=== PATIENT | female | born 1935 | race Two or more races ===

== ENCOUNTER 2020-02-16 13:03 | Inpatient (IN) | payer MEDICAID, OTHER ==
[~2020-02-16] VITALS: Ht 160 cm; Wt 89.0 kg
[2020-02-16] MEDS: SODIUM CHLORIDE 0.9% 1,000 ML IV SCH
[2020-02-16 01:35] VITALS: BP 133/75
[2020-02-16] MEDS: BUDESONIDE (INHALATION) 180 MCG IH IN SCH (10:00)
[2020-02-16] MEDS ORDERED: cefTRIAXone 1GM/50ML D5W 50 ML IV ONE (13:30)
[2020-02-16 14:22] LABS: Basophils # (auto) 0 10 ^3/uL (0-0.2); Eosinophils # (auto) 0 10 ^3/uL (0-0.8); Lymphocytes # (auto) 0.5 10 ^3/uL (0.4-5.4); Monocytes # (auto) 1.1 10 ^3/uL (0-1.3)
[2020-02-16 14:24] LABS: INR 1.11 (0.9-1.15); Partial Thromboplastin Time 34.1 sec (23.0-31.2)
[2020-02-16 14:25] LABS: Basophils % (auto) 0.3 % (0.0-2.0); Hematocrit 37.5 % (36.0-46.0); Hemoglobin 11.6 g/dL (12.2-16.2); Lymphocytes % (auto) 5.7 % (10.0-50.0); Mean Corpuscular Hemoglobin 27.9 pg (28.0-32.0); Mean Corpuscular Hgb Conc. 30.9 g/dL (32.0-36.0); Mean Corpuscular Volume 90.5 fL (80.0-100.0); Monocytes % (auto) 11.6 % (0.0-12.0); Neutrophils # (auto) 7.9 10 ^3/uL (1.6-8.6); Neutrophils % (auto) 82.4 % (37.0-80.0); Nucleated Red Blood Cells % 0.4 %; Platelet Count (auto) 309 10^3/uL (140-450); Red Blood Cells 4.14 10^6/uL (4.0-5.20); Red Cell Distribution Width 16.9 % (11.8-14.3); White Blood Cell 9.5 10^3/uL (4.4-10.8)
[2020-02-16 14:48] LABS: Albumin 2.2 g/dL (3.4-5.0); Anion Gap 25 (5-15); Calcium 8.8 mg/dL (8.5-10.1); Carbon Dioxide 10 mmol/L (21-32); Chloride 101 mmol/L (98-107); Glucose 108 mg/dL (74-106); Potassium 5.3 mmol/L (3.5-5.1); Sodium 136 mmol/L (136-145)
[2020-02-16 15:00] LABS: Alanine Aminotransferase 37 U/L (13-56); Alkaline Phosphatase 155 U/L (45-117); Aspartate Aminotransferase 121 U/L (15-37); BUN/Creatinine Ratio 19.6; Bilirubin, Total 0.6 mg/dL (0.2-1.0); GFR African American 13 mL/min; GFR Non-African American 11 mL/min; Lactate Dehydrogenase 1038 U/L (84-246)
[2020-02-16 15:32] LABS: CRP High Sensitivity > 19.0 mg/dL (< 0.3)
[2020-02-16 15:35] LABS: Blood Urea Nitrogen 81 mg/dL (7-18)
[2020-02-16] MEDS ORDERED: NITROGLYCERIN 0.4 MG SL TAB SL PRN (18:30)
[2020-02-16] MEDS ORDERED: MORPHINE SULF INJ 2 MG/ML SYRINGE 1ML IV PRN (18:30)
[2020-02-16] MEDS ORDERED: ENOXAPARIN SOD 60 MG/0.6 ML SYRINGE SC ONE (19:45)
[2020-02-16] MEDS ORDERED: REMDESIVIR PER PHARMACY 0 ML IV SCH (19:45)
[2020-02-16] MEDS ORDERED: diphenhdrAMINE HCL 50 MG/1 ML VL IV PRN (19:45)
[2020-02-16] MEDS ORDERED: LACTULOSE 20Gm/30ML SOLN PO PRN (19:45)
[2020-02-16 20:49] LABS: Amylase 61 U/L (25-115); Lipase 222 U/L (73-393)
[2020-02-16] MEDS ORDERED: HYDR12.56 PO (23:38)
[2020-02-16] MEDS ORDERED: DIGO0.25 PO (23:38)
[2020-02-16] MEDS ORDERED: METF-370 PO (23:38)
[2020-02-16] MEDS ORDERED: ASPI325T4 PO (23:38)
[2020-02-17 00:17] VITALS: BP 160/73
[2020-02-17] MEDS ORDERED: DEXTROSE (50%) 50ML SYRG IV PRN (01:45)
[2020-02-17] MEDS: DIGOXIN 0.25 MG TAB PO SCH (02:15)
[2020-02-17] MEDS: SODIUM CHLORIDE 0.9% 1,000 ML IV SCH ×2 (05:45→15:45)
[2020-02-17 06:26] LABS: Basophils # (auto) 0 10 ^3/uL (0-0.2); Basophils % (auto) 0.1 % (0.0-2.0); Eosinophils # (auto) 0 10 ^3/uL (0-0.8); Hematocrit 31.8 % (36.0-46.0); Hemoglobin 10.6 g/dL (12.2-16.2); Lymphocytes # (auto) 0.5 10 ^3/uL (0.4-5.4); Lymphocytes % (auto) 3.9 % (10.0-50.0); Mean Corpuscular Hemoglobin 27.5 pg (28.0-32.0); Mean Corpuscular Hgb Conc. 33.3 g/dL (32.0-36.0); Mean Corpuscular Volume 82.5 fL (80.0-100.0); Monocytes # (auto) 0.7 10 ^3/uL (0-1.3); Monocytes % (auto) 5.2 % (0.0-12.0); Neutrophils # (auto) 12.3 10 ^3/uL (1.6-8.6); Neutrophils % (auto) 90.8 % (37.0-80.0); Nucleated Red Blood Cells % 0.1 %; Platelet Count (auto) 226 10^3/uL (140-450); Red Blood Cells 3.85 10^6/uL (4.0-5.20); Red Cell Distribution Width 16.1 % (11.8-14.3); White Blood Cell 13.5 10^3/uL (4.4-10.8)
[2020-02-17] MEDS: InsuLIN REG 1unit/0.01ml Soln (100units/ml) SC SCH ×3 (06:36→18:00)
[2020-02-17] MEDS: ACCU-CHEK COMFORT CURVE STRIP VI SCH ×4 (06:36→22:30)
[2020-02-17 06:44] LABS: Potassium 5.1 mmol/L (3.5-5.1)
[2020-02-17 06:59] LABS: BUN/Creatinine Ratio 27.7; Calcium 8.1 mg/dL (8.5-10.1)
[2020-02-17 08:07] VITALS: BP 157/88
[2020-02-17 08:55] LABS: Bilirubin, Direct 0.3 mg/dL (0-0.2)
[2020-02-17 08:58] LABS: Bilirubin, Total 0.5 mg/dL (0.2-1.0); Total Protein 5.8 g/dL (6.4-8.2)
[2020-02-17 09:34] LABS: Urine Bacteria FEW /hpf (None Seen); Urine Blood 2+ /uL (Negative); Urine Hyaline Cast FEW /lpf (0 - 2); Urine Specific Gravity 1.016 (1.001-1.035); Urine WBC 19 /hpf (0 - 5)
[2020-02-17] MEDS: ZINC SULFATE 220mg CAP or TAB PO SCH (09:45)
[2020-02-17] MEDS: ASCORBIC ACID 1,000 MG TAB PO SCH (09:45)
[2020-02-17] MEDS: cefTRIAXone 1GM/50ML D5W 50 ML IV SCH (09:45)
[2020-02-17] MEDS: FAMOTIDINE (10MG/ML) 2ML VL IV SCH (09:45)
[2020-02-17] MEDS: DexAMETHasone SOD PHOS 10MG/1ML VIAL INJ IV SCH (09:45)
[2020-02-17] MEDS: CHOLECALCIFEROL (VITD3) 2,000 UNIT CAP/TAB PO SCH (09:46)
[2020-02-17] MEDS: BUDESONIDE (INHALATION) 180 MCG IH IN SCH ×2 (10:00→19:12)
[2020-02-17] MEDS: AZITHROMYCIN 500MG/ 250ML 250 ML IV SCH (11:00)
[2020-02-17 11:10] LABS: Hemoglobin 11.2 g/dL (12.2-16.2)
[2020-02-17 11:13] LABS: Hematocrit 33.7 % (36.0-46.0)
[2020-02-17 16:00] VITALS: BP 153/91
[2020-02-17 16:02] VITALS: BP 134/76
[2020-02-17 16:17] VITALS: BP 136/83
[2020-02-17 17:19] LABS: Hematocrit 33.4 % (36.0-46.0); Hemoglobin 11.1 g/dL (12.2-16.2)
[2020-02-17 18:28] VITALS: BP 162/90
[2020-02-17] MEDS: ALBUTEROL SULF HFA 90MCG INH 200DOSE IN PRN (20:50)
[2020-02-17] MEDS ORDERED: InsuLIN REG 1unit/0.01ml Soln (100units/ml) SC SCH (22:00)
[2020-02-17] MEDS: ENOXAPARIN SOD 40 MG/0.4 ML SYRINGE SC SCH (22:30)
[2020-02-17 22:50] LABS: Hematocrit 35.8 % (36.0-46.0); Hemoglobin 11.3 g/dL (12.2-16.2)
[2020-02-18 00:02] VITALS: BP 155/99
[2020-02-18] MEDS: SODIUM CHLORIDE 0.9% 1,000 ML IV SCH ×2 (02:15→11:45)
[2020-02-18 05:24] LABS: Basophils # (auto) 0 10 ^3/uL (0-0.2); Basophils % (auto) 0.1 % (0.0-2.0); Eosinophils # (auto) 0 10 ^3/uL (0-0.8); Hematocrit 31.7 % (36.0-46.0); Hemoglobin 10.6 g/dL (12.2-16.2); Lymphocytes # (auto) 0.4 10 ^3/uL (0.4-5.4); Lymphocytes % (auto) 2.8 % (10.0-50.0); Mean Corpuscular Hemoglobin 27.1 pg (28.0-32.0); Mean Corpuscular Hgb Conc. 33.4 g/dL (32.0-36.0); Mean Corpuscular Volume 81.1 fL (80.0-100.0); Monocytes # (auto) 0.8 10 ^3/uL (0-1.3); Monocytes % (auto) 6.2 % (0.0-12.0); Neutrophils # (auto) 12.2 10 ^3/uL (1.6-8.6); Neutrophils % (auto) 90.9 % (37.0-80.0); Nucleated Red Blood Cells % 0.2 %; Platelet Count (auto) 194 10^3/uL (140-450); Red Blood Cells 3.92 10^6/uL (4.0-5.20); Red Cell Distribution Width 15.9 % (11.8-14.3); White Blood Cell 13.4 10^3/uL (4.4-10.8)
[2020-02-18 05:42] LABS: Potassium 3.9 mmol/L (3.5-5.1)
[2020-02-18 05:50] LABS: Albumin 2.1 g/dL (3.4-5.0); BUN/Creatinine Ratio 32.8; Bilirubin, Total 0.5 mg/dL (0.2-1.0); Calcium 7.9 mg/dL (8.5-10.1)
[2020-02-18] MEDS: BUDESONIDE (INHALATION) 180 MCG IH IN SCH (06:50)
[2020-02-18] MEDS: InsuLIN REG 1unit/0.01ml Soln (100units/ml) SC SCH ×3 (06:58→17:55)
[2020-02-18] MEDS: ACCU-CHEK COMFORT CURVE STRIP VI SCH ×3 (06:58→17:54)
[2020-02-18 08:00] VITALS: BP 191/109
[2020-02-18] MEDS: cefTRIAXone 1GM/50ML D5W 50 ML IV SCH (09:00)
[2020-02-18] MEDS: DexAMETHasone SOD PHOS 10MG/1ML VIAL INJ IV SCH (09:20)
[2020-02-18] MEDS: AZITHROMYCIN 500MG/ 250ML 250 ML IV SCH (09:20)
[2020-02-18] MEDS: CHOLECALCIFEROL (VITD3) 2,000 UNIT CAP/TAB PO SCH (09:21)
[2020-02-18] MEDS: ASCORBIC ACID 1,000 MG TAB PO SCH (09:21)
[2020-02-18] MEDS: ZINC SULFATE 220mg CAP or TAB PO SCH (09:21)
[2020-02-18] MEDS: FAMOTIDINE (10MG/ML) 2ML VL IV SCH (09:27)
[2020-02-18] MEDS: DIGOXIN 0.25 MG TAB PO SCH (09:44)
[2020-02-18] MEDS ORDERED: cloNIDine HCL 0.1 MG TAB PO ONE (11:00)
[2020-02-18 16:00] VITALS: BP 159/74
[2020-02-18] MEDS ORDERED: DEXTROSE (50%) 50ML SYRG IV PRN (19:30)
[2020-02-18] MEDS ORDERED: amLODIPine BESYLATE 5 MG TAB PO ONE (19:30)
[2020-02-18] MEDS: cloNIDine HCL 0.1 MG TAB PO PRN (19:45)
[2020-02-18] MEDS: METOPROLOL TARTRATE 25 MG TAB PO SCH (21:45)
[2020-02-18] MEDS: ENOXAPARIN SOD 40 MG/0.4 ML SYRINGE SC SCH (22:00)
[2020-02-19 00:30] VITALS: BP 185/90
[2020-02-19] MEDS: cloNIDine HCL 0.1 MG TAB PO PRN (02:30)
[2020-02-19] MEDS: ACCU-CHEK COMFORT CURVE STRIP VI SCH ×4 (06:00→18:00)
[2020-02-19] MEDS: InsuLIN REG 1unit/0.01ml Soln (100units/ml) SC SCH ×4 (06:00→18:34)
[2020-02-19 08:00] VITALS: BP 178/84
[2020-02-19 09:05] LABS: BUN/Creatinine Ratio 35.2; Calcium 8.5 mg/dL (8.5-10.1); Potassium 3.7 mmol/L (3.5-5.1)
[2020-02-19] MEDS: cefTRIAXone 1GM/50ML D5W 50 ML IV SCH (09:34)
[2020-02-19] MEDS: CHOLECALCIFEROL (VITD3) 2,000 UNIT CAP/TAB PO SCH ×2 (09:34→09:47)
[2020-02-19] MEDS: ZINC SULFATE 220mg CAP or TAB PO SCH ×2 (09:34→09:47)
[2020-02-19] MEDS: ASCORBIC ACID 1,000 MG TAB PO SCH ×2 (09:34→09:47)
[2020-02-19] MEDS: DIGOXIN 0.25 MG TAB PO SCH (09:36)
[2020-02-19] MEDS: METOPROLOL TARTRATE 25 MG TAB PO SCH ×2 (09:36→22:02)
[2020-02-19] MEDS: amLODIPine BESYLATE 5 MG TAB PO SCH (09:36)
[2020-02-19] MEDS: FAMOTIDINE (10MG/ML) 2ML VL IV SCH (09:37)
[2020-02-19] MEDS: AZITHROMYCIN 500MG/ 250ML 250 ML IV SCH (09:37)
[2020-02-19] MEDS: BUDESONIDE (INHALATION) 180 MCG IH IN SCH ×2 (10:00→18:44)
[2020-02-19 11:34] VITALS: BP 133/94
[2020-02-19 16:29] VITALS: BP 155/74
[2020-02-19] MEDS: ALBUTEROL SULF HFA 90MCG INH 200DOSE IN PRN (18:44)
[2020-02-19] MEDS ORDERED: FUROSEMIDE 40 MG/4 ML VIAL IV ONE (20:15)
[2020-02-19] MEDS ORDERED: ENOXAPARIN SOD 30 MG/0.3 ML SYRINGE SC ONE (20:15)
[2020-02-19] MEDS ORDERED: REMDESIVIR PER PHARMACY 0 ML IV SCH (20:15)
[2020-02-19] MEDS ORDERED: ENOXAPARIN SOD 80 MG/0.8ML SYRINGE SC ONE (20:15)
[2020-02-19] MEDS ORDERED: DexAMETHasone SOD PHOS 10MG/1ML VIAL INJ IV ONE (20:15)
[2020-02-20] VITALS: BP 132/86
[2020-02-20] MEDS: ACCU-CHEK COMFORT CURVE STRIP VI SCH ×4 (06:22→17:10)
[2020-02-20] MEDS: InsuLIN REG 1unit/0.01ml Soln (100units/ml) SC SCH ×4 (06:27→17:11)
[2020-02-20 08:00] VITALS: BP 165/68
[2020-02-20] MEDS: cefTRIAXone 1GM/50ML D5W 50 ML IV SCH (09:11)
[2020-02-20] MEDS: AZITHROMYCIN 500MG/ 250ML 250 ML IV SCH (09:12)
[2020-02-20] MEDS: ZINC SULFATE 220mg CAP or TAB PO SCH (09:12)
[2020-02-20] MEDS: DIGOXIN 0.25 MG TAB PO SCH (09:12)
[2020-02-20] MEDS: amLODIPine BESYLATE 5 MG TAB PO SCH (09:13)
[2020-02-20] MEDS: METOPROLOL TARTRATE 25 MG TAB PO SCH ×2 (09:13→22:04)
[2020-02-20] MEDS: ASCORBIC ACID 1,000 MG TAB PO SCH (09:14)
[2020-02-20] MEDS: CHOLECALCIFEROL (VITD3) 2,000 UNIT CAP/TAB PO SCH (09:14)
[2020-02-20] MEDS ORDERED: FUROSEMIDE 20 MG/2 ML VIAL IV SCH (10:00)
[2020-02-20] MEDS: BUDESONIDE (INHALATION) 180 MCG IH IN SCH ×2 (10:34→21:38)
[2020-02-20] MEDS ORDERED: INSULIN LANTUS (GLARGINE) 1 /0.01ml (100units/ml) SC ONE (11:15)
[2020-02-20 12:00] VITALS: BP 147/71
[2020-02-20 12:20] LABS: Calcium 8.4 mg/dL (8.5-10.1); Potassium 4.5 mmol/L (3.5-5.1)
[2020-02-20 12:22] LABS: BUN/Creatinine Ratio 30.9
[2020-02-20] MEDS: FAMOTIDINE (10MG/ML) 2ML VL IV SCH (12:32)
[2020-02-20] MEDS ORDERED: REMDESIVIR 200 MG in NS 210ml LOADING DOSE ADULT IV ONE (15:00)
[2020-02-20 16:00] VITALS: BP 136/62
[2020-02-20] MEDS: ALBUTEROL SULF HFA 90MCG INH 200DOSE IN PRN (21:38)
[2020-02-20] MEDS: DexAMETHasone SOD PHOS 10MG/1ML VIAL INJ IV SCH (21:59)
[2020-02-20] MEDS: ENOXAPARIN SOD 80 MG/0.8ML SYRINGE SC SCH (21:59)
[2020-02-21] VITALS: BP 153/70
[2020-02-21] MEDS: ACCU-CHEK COMFORT CURVE STRIP VI SCH ×5 (00:12→22:54)
[2020-02-21] MEDS: InsuLIN REG 1unit/0.01ml Soln (100units/ml) SC SCH ×5 (06:29→22:00)
[2020-02-21 07:09] LABS: Albumin 2.2 g/dL (3.4-5.0); Calcium 8.4 mg/dL (8.5-10.1); Potassium 4.3 mmol/L (3.5-5.1)
[2020-02-21 07:25] LABS: BUN/Creatinine Ratio 36.6; Bilirubin, Total 0.4 mg/dL (0.2-1.0); Total Protein 6.5 g/dL (6.4-8.2)
[2020-02-21 08:12] VITALS: BP 158/97
[2020-02-21] MEDS: ALBUTEROL SULF HFA 90MCG INH 200DOSE IN PRN ×2 (09:08→19:39)
[2020-02-21] MEDS: BUDESONIDE (INHALATION) 180 MCG IH IN SCH ×2 (09:08→19:38)
[2020-02-21] MEDS: CHOLECALCIFEROL (VITD3) 2,000 UNIT CAP/TAB PO SCH (09:49)
[2020-02-21] MEDS: amLODIPine BESYLATE 5 MG TAB PO SCH (09:51)
[2020-02-21] MEDS: cefTRIAXone 1GM/50ML D5W 50 ML IV SCH (09:54)
[2020-02-21] MEDS: FAMOTIDINE (10MG/ML) 2ML VL IV SCH (09:56)
[2020-02-21] MEDS: FUROSEMIDE 40 MG/4 ML VIAL IV SCH (09:56)
[2020-02-21] MEDS: ASCORBIC ACID 1,000 MG TAB PO SCH (10:00)
[2020-02-21] MEDS ORDERED: INSULIN LANTUS (GLARGINE) 1 /0.01ml (100units/ml) SC SCH (10:00)
[2020-02-21] MEDS: ZINC SULFATE 220mg CAP or TAB PO SCH (10:00)
[2020-02-21] MEDS: METOPROLOL TARTRATE 25 MG TAB PO SCH ×2 (10:29→22:53)
[2020-02-21] MEDS: AZITHROMYCIN 500MG/ 250ML 250 ML IV SCH (10:37)
[2020-02-21] MEDS ORDERED: INSULIN LANTUS (GLARGINE) 1 /0.01ml (100units/ml) SC ONE (10:45)
[2020-02-21] MEDS ORDERED: DEXTROSE (50%) 50ML SYRG IV PRN (11:00)
[2020-02-21 12:23] LABS: Protein, Urine 259.2 mg/dL (0.0-11.9)
[2020-02-21 15:32] VITALS: BP 142/70
[2020-02-21] MEDS: DexAMETHasone SOD PHOS 10MG/1ML VIAL INJ IV SCH (22:52)
[2020-02-21] MEDS: ENOXAPARIN SOD 80 MG/0.8ML SYRINGE SC SCH (22:54)
[2020-02-22] VITALS: BP 150/87
[2020-02-22] MEDS: ACCU-CHEK COMFORT CURVE STRIP VI SCH ×4 (06:07→22:44)
[2020-02-22] MEDS: InsuLIN REG 1unit/0.01ml Soln (100units/ml) SC SCH ×4 (06:46→22:58)
[2020-02-22 08:00] VITALS: BP 136/69
[2020-02-22 08:20] LABS: Potassium 3.6 mmol/L (3.5-5.1)
[2020-02-22 08:21] LABS: Hemoglobin 11.5 g/dL (12.2-16.2)
[2020-02-22 08:23] LABS: Hematocrit 34.9 % (36.0-46.0); Mean Corpuscular Hgb Conc. 32.8 g/dL (32.0-36.0); Mean Corpuscular Volume 82.1 fL (80.0-100.0); Platelet Count (auto) 125 10^3/uL (140-450); Red Blood Cells 4.25 10^6/uL (4.0-5.20); Red Cell Distribution Width 16.3 % (11.8-14.3); White Blood Cell 19.2 10^3/uL (4.4-10.8)
[2020-02-22 08:27] LABS: BUN/Creatinine Ratio 37.6; Calcium 8.3 mg/dL (8.5-10.1)
[2020-02-22 08:29] LABS: Basophils % (manual) 0 (0.0-2.0); Blast Cells 0; Eosinophils % (manual) 0 (0-7); Metamyelocytes % 0; Promyelocytes % 0; Reactive Lymphocytes 0
[2020-02-22] MEDS: cefTRIAXone 1GM/50ML D5W 50 ML IV SCH (10:00)
[2020-02-22] MEDS: ASCORBIC ACID 1,000 MG TAB PO SCH (10:00)
[2020-02-22] MEDS: INSULIN LANTUS (GLARGINE) 1 /0.01ml (100units/ml) SC SCH (10:00)
[2020-02-22] MEDS: CHOLECALCIFEROL (VITD3) 2,000 UNIT CAP/TAB PO SCH (10:00)
[2020-02-22] MEDS: BUDESONIDE (INHALATION) 180 MCG IH IN SCH ×2 (10:00→19:47)
[2020-02-22] MEDS: FUROSEMIDE 40 MG/4 ML VIAL IV SCH (10:01)
[2020-02-22] MEDS: FAMOTIDINE (10MG/ML) 2ML VL IV SCH (10:01)
[2020-02-22] MEDS: ZINC SULFATE 220mg CAP or TAB PO SCH (10:02)
[2020-02-22] MEDS: AZITHROMYCIN 500MG/ 250ML 250 ML IV SCH (10:02)
[2020-02-22] MEDS: METOPROLOL TARTRATE 25 MG TAB PO SCH ×2 (10:03→22:58)
[2020-02-22] MEDS: amLODIPine BESYLATE 5 MG TAB PO SCH (10:04)
[2020-02-22 12:51] LABS: Band Neutrophils % (manual) 21; Lymphocytes % (manual) 1 (10.0-50.0); Monocytes % (manual) 3 (0-12); Myelocytes % 3
[2020-02-22 15:47] VITALS: BP 137/60
[2020-02-22] MEDS: ALBUTEROL SULF HFA 90MCG INH 200DOSE IN PRN (19:47)
[2020-02-22] MEDS: DexAMETHasone SOD PHOS 10MG/1ML VIAL INJ IV SCH (22:44)
[2020-02-22] MEDS: ENOXAPARIN SOD 80 MG/0.8ML SYRINGE SC SCH (22:46)
[2020-02-22] MEDS: REMDESIVIR 100mg 100 MG in SODIUM CHL 0.9% 230 ML IV SCH (23:00)
[2020-02-23] VITALS: BP 130/66
[2020-02-23] MEDS: BUDESONIDE (INHALATION) 180 MCG IH IN SCH ×2 (06:00→19:05)
[2020-02-23] MEDS: InsuLIN REG 1unit/0.01ml Soln (100units/ml) SC SCH ×4 (06:16→22:19)
[2020-02-23] MEDS: ACCU-CHEK COMFORT CURVE STRIP VI SCH ×4 (06:16→22:12)
[2020-02-23 06:31] LABS: Chloride 108 mmol/L (98-107); Sodium 141 mmol/L (136-145)
[2020-02-23 06:59] LABS: Alanine Aminotransferase 23 U/L (13-56); Albumin 1.7 g/dL (3.4-5.0); Alkaline Phosphatase 218 U/L (45-117); Anion Gap 8 (5-15); Aspartate Aminotransferase 44 U/L (15-37); BUN/Creatinine Ratio 37.3; Bilirubin, Total 0.6 mg/dL (0.2-1.0); Blood Urea Nitrogen 69 mg/dL (7-18); Calcium 7.8 mg/dL (8.5-10.1); Carbon Dioxide 25 mmol/L (21-32); GFR African American 33 mL/min; GFR Non-African American 27 mL/min; Glucose 120 mg/dL (74-106)
[2020-02-23 07:20] LABS: CRP High Sensitivity > 19 mg/dL (< 0.3)
[2020-02-23 08:00] VITALS: BP 149/54
[2020-02-23 08:06] LABS: Immunoglobulin G, Serum 1432 mg/dL (586-1602)
[2020-02-23] MEDS: FUROSEMIDE 40 MG/4 ML VIAL IV SCH (10:00)
[2020-02-23] MEDS: ZINC SULFATE 220mg CAP or TAB PO SCH (10:00)
[2020-02-23] MEDS: METOPROLOL TARTRATE 25 MG TAB PO SCH ×2 (10:00→22:00)
[2020-02-23] MEDS: INSULIN LANTUS (GLARGINE) 1 /0.01ml (100units/ml) SC SCH (10:00)
[2020-02-23] MEDS: FAMOTIDINE (10MG/ML) 2ML VL IV SCH (10:00)
[2020-02-23] MEDS: ASCORBIC ACID 1,000 MG TAB PO SCH (10:00)
[2020-02-23] MEDS: amLODIPine BESYLATE 5 MG TAB PO SCH (10:00)
[2020-02-23] MEDS: CHOLECALCIFEROL (VITD3) 2,000 UNIT CAP/TAB PO SCH (10:00)
[2020-02-23 11:00] VITALS: BP 124/57
[2020-02-23] MEDS: cefTRIAXone 1GM/50ML D5W 50 ML IV SCH (11:03)
[2020-02-23] MEDS: AZITHROMYCIN 500MG/ 250ML 250 ML IV SCH (11:59)
[2020-02-23 16:00] VITALS: BP 147/56
[2020-02-23] MEDS: REMDESIVIR 100mg 100 MG in SODIUM CHL 0.9% 230 ML IV SCH (16:15)
[2020-02-23] MEDS: ALBUTEROL SULF HFA 90MCG INH 200DOSE IN PRN (19:06)
[2020-02-23] MEDS: ENOXAPARIN SOD 80 MG/0.8ML SYRINGE SC SCH (22:11)
[2020-02-23] MEDS: DexAMETHasone SOD PHOS 10MG/1ML VIAL INJ IV SCH (22:11)
[2020-02-24] VITALS: BP 132/56
[2020-02-24] MEDS: ACCU-CHEK COMFORT CURVE STRIP VI SCH ×4 (05:46→23:41)
[2020-02-24] MEDS: InsuLIN REG 1unit/0.01ml Soln (100units/ml) SC SCH ×4 (05:46→23:41)
[2020-02-24 08:00] VITALS: BP 119/77
[2020-02-24] MEDS: BUDESONIDE (INHALATION) 180 MCG IH IN SCH ×2 (08:00→19:44)
[2020-02-24] MEDS: cefTRIAXone 1GM/50ML D5W 50 ML IV SCH (09:05)
[2020-02-24] MEDS: METOPROLOL TARTRATE 25 MG TAB PO SCH ×2 (09:28→22:00)
[2020-02-24] MEDS: ZINC SULFATE 220mg CAP or TAB PO SCH (09:28)
[2020-02-24] MEDS: CHOLECALCIFEROL (VITD3) 2,000 UNIT CAP/TAB PO SCH (09:29)
[2020-02-24] MEDS: ASCORBIC ACID 1,000 MG TAB PO SCH (09:29)
[2020-02-24] MEDS: amLODIPine BESYLATE 5 MG TAB PO SCH (09:29)
[2020-02-24] MEDS: FUROSEMIDE 40 MG/4 ML VIAL IV SCH (09:55)
[2020-02-24] MEDS: FAMOTIDINE (10MG/ML) 2ML VL IV SCH (09:56)
[2020-02-24] MEDS: INSULIN LANTUS (GLARGINE) 1 /0.01ml (100units/ml) SC SCH (10:00)
[2020-02-24] MEDS: AZITHROMYCIN 500MG/ 250ML 250 ML IV SCH (10:28)
[2020-02-24] MEDS ORDERED: TPN PER PHARMACY 0 ML IV SCH (11:30)
[2020-02-24 11:32] LABS: INR 1.49 (0.9-1.15); Partial Thromboplastin Time 37.5 sec (23.0-31.2)
[2020-02-24 11:35] LABS: Albumin 1.7 g/dL (3.4-5.0); Calcium 7.7 mg/dL (8.5-10.1); Potassium 4.7 mmol/L (3.5-5.1)
[2020-02-24 11:40] LABS: BUN/Creatinine Ratio 39.5; Bilirubin, Total 0.3 mg/dL (0.2-1.0); Total Protein 6.2 g/dL (6.4-8.2)
[2020-02-24 11:52] LABS: Magnesium 2.2 mg/dL (1.6-2.6); Phosphorus 6.8 mg/dL (2.5-4.90); Pre Albumin 3.7 mg/dL (20.0-40.0)
[2020-02-24 16:00] VITALS: BP 128/66
[2020-02-24] MEDS ORDERED: LIDOCAINE 1% (LOCAL ANESTH.) PF 5ml SDV ID ONE (18:45)
[2020-02-24] MEDS ORDERED: PPN PER PHARMACY IV NR ×8 (20:00)
[2020-02-24] MEDS: SODIUM CHLOR 0.9% PF (SALINE LOCK) 10ML VIAL/SYR IV SCH (22:00)
[2020-02-24] MEDS: ENOXAPARIN SOD 60 MG/0.6 ML SYRINGE SC SCH (22:44)
[2020-02-24] MEDS: DexAMETHasone SOD PHOS 10MG/1ML VIAL INJ IV SCH (22:44)
[2020-02-25] VITALS: BP_SYST 121; BP_SYST 124; BP_DIAS 59; BP_DIAS 70
[2020-02-25] MEDS: ACCU-CHEK COMFORT CURVE STRIP VI SCH ×3 (06:00→17:17)
[2020-02-25] MEDS: InsuLIN REG 1unit/0.01ml Soln (100units/ml) SC SCH ×3 (06:33→17:37)
[2020-02-25] MEDS: BUDESONIDE (INHALATION) 180 MCG IH IN SCH ×2 (07:11→17:53)
[2020-02-25 07:51] LABS: Basophils # (auto) 0 10 ^3/uL (0-0.2); Eosinophils # (auto) 0 10 ^3/uL (0-0.8); Hematocrit 31.3 % (36.0-46.0); Lymphocytes # (auto) 0.1 10 ^3/uL (0.4-5.4); Lymphocytes % (auto) 0.7 % (10.0-50.0); Mean Corpuscular Hemoglobin 26.9 pg (28.0-32.0); Monocytes # (auto) 0.5 10 ^3/uL (0-1.3); Neutrophils # (auto) 14.9 10 ^3/uL (1.6-8.6)
[2020-02-25 07:53] LABS: Basophils % (auto) 0.1 % (0.0-2.0); Mean Corpuscular Hgb Conc. 32.1 g/dL (32.0-36.0); Mean Corpuscular Volume 83.7 fL (80.0-100.0); Monocytes % (auto) 3.4 % (0.0-12.0); Neutrophils % (auto) 95.8 % (37.0-80.0); Nucleated Red Blood Cells % 0.1 %; Platelet Count (auto) 137 10^3/uL (140-450); Red Blood Cells 3.74 10^6/uL (4.0-5.20); Red Cell Distribution Width 16.9 % (11.8-14.3); White Blood Cell 15.6 10^3/uL (4.4-10.8)
[2020-02-25 08:01] VITALS: BP 128/80
[2020-02-25 08:16] LABS: Albumin 1.5 g/dL (3.4-5.0); Calcium 7.5 mg/dL (8.5-10.1); Magnesium 2.4 mg/dL (1.6-2.6); Potassium 4.4 mmol/L (3.5-5.1)
[2020-02-25 08:21] LABS: BUN/Creatinine Ratio 41.4; Bilirubin, Total 0.2 mg/dL (0.2-1.0); Phosphorus 6.4 mg/dL (2.5-4.90)
[2020-02-25] MEDS: cefTRIAXone 1GM/50ML D5W 50 ML IV SCH (08:40)
[2020-02-25] MEDS: FAMOTIDINE (10MG/ML) 2ML VL IV SCH (09:37)
[2020-02-25] MEDS: SOD CHL 0.45% 1,000 ML IV SCH ×2 (09:37→22:05)
[2020-02-25] MEDS: SODIUM CHLOR 0.9% PF (SALINE LOCK) 10ML VIAL/SYR IV SCH ×2 (09:37→22:00)
[2020-02-25] MEDS: FUROSEMIDE 40 MG/4 ML VIAL IV SCH (09:37)
[2020-02-25] MEDS: AZITHROMYCIN 500MG/ 250ML 250 ML IV SCH (09:37)
[2020-02-25] MEDS: amLODIPine BESYLATE 5 MG TAB PO SCH (09:38)
[2020-02-25] MEDS: ASCORBIC ACID 1,000 MG TAB PO SCH (09:38)
[2020-02-25] MEDS: ZINC SULFATE 220mg CAP or TAB PO SCH (09:38)
[2020-02-25] MEDS: METOPROLOL TARTRATE 25 MG TAB PO SCH (09:38)
[2020-02-25] MEDS: INSULIN LANTUS (GLARGINE) 1 /0.01ml (100units/ml) SC SCH (09:39)
[2020-02-25] MEDS: CHOLECALCIFEROL (VITD3) 2,000 UNIT CAP/TAB PO SCH (09:39)
[2020-02-25] MEDS: METOPROLOL TARTRATE 1MG/1ML-5ML VIAL IV SCH ×2 (12:19→17:38)
[2020-02-25 16:00] VITALS: BP 139/76
[2020-02-25] MEDS: ALBUTEROL SULF HFA 90MCG INH 200DOSE IN PRN (17:53)
[2020-02-25] MEDS ORDERED: TPN PER PHARMACY IV NR ×6 (20:00)
[2020-02-25] MEDS: ENOXAPARIN SOD 60 MG/0.6 ML SYRINGE SC SCH (22:50)
[2020-02-25] MEDS: DexAMETHasone SOD PHOS 10MG/1ML VIAL INJ IV SCH (22:50)
[2020-02-26] VITALS (46 sets, daily range): BP systolic 84–146; BP diastolic 25–88
[2020-02-26] MEDS: METOPROLOL TARTRATE 1MG/1ML-5ML VIAL IV SCH ×2 (00:05→06:53)
[2020-02-26] MEDS: InsuLIN REG 1unit/0.01ml Soln (100units/ml) SC SCH ×5 (00:33→23:52)
[2020-02-26] MEDS: ACCU-CHEK COMFORT CURVE STRIP VI SCH ×4 (06:00→17:54)
[2020-02-26] MEDS ORDERED: ROCURONIUM 10MG/ML 10ML VIAL IV ONE (07:56)
[2020-02-26] MEDS ORDERED: SUCCINYLCHOLINE CHLORIDE 20 MG/ML 10ML VIAL IV ONE (07:56)
[2020-02-26] MEDS ORDERED: ETOMIDATE (2MG/ML) 20ML VIAL IV ONE (07:56)
[2020-02-26] MEDS ORDERED: PROPOFOL 10 MG/ML 20 ML IV ONE (08:00)
[2020-02-26] MEDS ORDERED: NOREPINEPHRINE 8 MG/250ML KIT 250 ML IV ONE (08:15)
[2020-02-26 08:26] LABS: Albumin 1.4 g/dL (3.4-5.0); Calcium 7.4 mg/dL (8.5-10.1); Magnesium 2.5 mg/dL (1.6-2.6); Potassium 4.5 mmol/L (3.5-5.1)
[2020-02-26 08:30] LABS: BUN/Creatinine Ratio 45.9; Bilirubin, Total 0.2 mg/dL (0.2-1.0); Phosphorus 8.2 mg/dL (2.5-4.90); Total Protein 5.8 g/dL (6.4-8.2)
[2020-02-26] MEDS ORDERED: PROPOFOL 10 MG/ML 100ML BOTTLE IV ONE (08:30)
[2020-02-26] MEDS: cefTRIAXone 1GM/50ML D5W 50 ML IV SCH (09:00)
[2020-02-26] MEDS: SODIUM CHLOR 0.9% PF (SALINE LOCK) 10ML VIAL/SYR IV SCH ×2 (10:00→22:47)
[2020-02-26] MEDS: FAMOTIDINE (10MG/ML) 2ML VL IV SCH (10:00)
[2020-02-26] MEDS: INSULIN LANTUS (GLARGINE) 1 /0.01ml (100units/ml) SC SCH (10:00)
[2020-02-26 10:21] LABS: Eosinophils # (auto) 0 10 ^3/uL (0-0.8); Lymphocytes # (auto) 0.2 10 ^3/uL (0.4-5.4); White Blood Cell 18.1 10^3/uL (4.4-10.8)
[2020-02-26 10:24] LABS: Basophils # (auto) 0.2 10 ^3/uL (0-0.2); Basophils % (auto) 1.1 % (0.0-2.0); Hematocrit 34.7 % (36.0-46.0); Hemoglobin 10.8 g/dL (12.2-16.2); Lymphocytes % (auto) 0.9 % (10.0-50.0); Mean Corpuscular Hemoglobin 26.8 pg (28.0-32.0); Mean Corpuscular Hgb Conc. 31.1 g/dL (32.0-36.0); Monocytes # (auto) 0.9 10 ^3/uL (0-1.3); Neutrophils # (auto) 16.8 10 ^3/uL (1.6-8.6); Nucleated Red Blood Cells % 0.1 %; Platelet Count (auto) 96 10^3/uL (140-450); Red Blood Cells 4.03 10^6/uL (4.0-5.20); Red Cell Distribution Width 17.2 % (11.8-14.3)
[2020-02-26] MEDS ORDERED: SODIUM BICARBONATE 8.4 % INJ 50ML VIAL IV ONE (12:00)
[2020-02-26] MEDS ORDERED: CEFEPIME 1 GM in SODIUM CHL 0.9% 50 ML IV SCH (14:00)
[2020-02-26] MEDS: CEFEPIME 1 GM in SODIUM CHL 0.9% 50 ML IV SCH (14:00)
[2020-02-26] MEDS ORDERED: TPN PER PHARMACY IV NR ×7 (20:00)
[2020-02-26] MEDS: ENOXAPARIN SOD 60 MG/0.6 ML SYRINGE SC SCH (22:47)
[2020-02-26] MEDS: DexAMETHasone SOD PHOS 10MG/1ML VIAL INJ IV SCH (22:47)
[2020-02-26] MEDS: METOPROLOL TARTRATE 25 MG TAB GT SCH (22:48)
[2020-02-27] VITALS (77 sets, daily range): BP systolic 86–144; BP diastolic 31–86
[2020-02-27] MEDS: ACCU-CHEK COMFORT CURVE STRIP VI SCH ×4 (00:12→18:27)
[2020-02-27] MEDS ORDERED: PROPOFOL 100 ML IV ONE (02:50)
[2020-02-27 04:54] LABS: Albumin 1.3 g/dL (3.4-5.0); Potassium 3.6 mmol/L (3.5-5.1)
[2020-02-27 04:57] LABS: BUN/Creatinine Ratio 52.3; Bilirubin, Total 0.2 mg/dL (0.2-1.0); Phosphorus 4.9 mg/dL (2.5-4.90); Total Protein 5.2 g/dL (6.4-8.2)
[2020-02-27] MEDS ORDERED: PROPOFOL 100 ML IV SCH ×3 (05:15)
[2020-02-27] MEDS: InsuLIN REG 1unit/0.01ml Soln (100units/ml) SC SCH ×3 (05:18→18:28)
[2020-02-27] MEDS: PROPOFOL 100 ML IV SCH ×5 (05:42→23:15)
[2020-02-27] MEDS: FAMOTIDINE (10MG/ML) 2ML VL IV SCH (10:00)
[2020-02-27] MEDS: METOPROLOL TARTRATE 25 MG TAB GT SCH ×2 (10:00→22:00)
[2020-02-27] MEDS: INSULIN LANTUS (GLARGINE) 1 /0.01ml (100units/ml) SC SCH (10:00)
[2020-02-27] MEDS: SODIUM CHLOR 0.9% PF (SALINE LOCK) 10ML VIAL/SYR IV SCH ×2 (10:00→22:00)
[2020-02-27 10:34] LABS: Hemoglobin 9.1 g/dL (12.2-16.2)
[2020-02-27 10:36] LABS: Mean Corpuscular Hemoglobin 26.5 pg (28.0-32.0); Mean Corpuscular Hgb Conc. 32.6 g/dL (32.0-36.0); Mean Corpuscular Volume 81.4 fL (80.0-100.0); Platelet Count (auto) 62 10^3/uL (140-450); Red Blood Cells 3.45 10^6/uL (4.0-5.20); Red Cell Distribution Width 16.2 % (11.8-14.3); White Blood Cell 18.7 10^3/uL (4.4-10.8)
[2020-02-27 10:46] LABS: Basophils % (manual) 0 (0.0-2.0); Blast Cells 0; Eosinophils % (manual) 0 (0-7); Metamyelocytes % 0; Promyelocytes % 0; Reactive Lymphocytes 0
[2020-02-27] MEDS: fentaNYL Drip 2500mCg/250mlNS 250 ML IV SCH (11:56)
[2020-02-27] MEDS: CEFEPIME 1 GM in SODIUM CHL 0.9% 50 ML IV SCH (12:00)
[2020-02-27 12:09] LABS: Band Neutrophils % (manual) 15; Lymphocytes % (manual) 5 (10.0-50.0); Monocytes % (manual) 2 (0-12); Myelocytes % 2
[2020-02-27] MEDS: TPN PER PHARMACY IV NR ×10 (20:00)
[2020-02-27] MEDS: DexAMETHasone SOD PHOS 10MG/1ML VIAL INJ IV SCH (22:00)
[2020-02-27] MEDS: ENOXAPARIN SOD 60 MG/0.6 ML SYRINGE SC SCH (22:00)
[2020-02-28] VITALS (97 sets, daily range): BP systolic 83–138; BP diastolic 36–64
[2020-02-28] MEDS: ACCU-CHEK COMFORT CURVE STRIP VI SCH ×4 (01:17→18:00)
[2020-02-28] MEDS: InsuLIN REG 1unit/0.01ml Soln (100units/ml) SC SCH ×4 (01:17→18:00)
[2020-02-28] MEDS: PROPOFOL 100 ML IV SCH ×2 (07:19→19:00)
[2020-02-28] MEDS: TPN PER PHARMACY IV NR ×10 (08:00)
[2020-02-28 08:52] LABS: Basophils # (auto) 0 10 ^3/uL (0-0.2); Basophils % (auto) 0.1 % (0.0-2.0); Eosinophils # (auto) 0 10 ^3/uL (0-0.8); Lymphocytes # (auto) 0.1 10 ^3/uL (0.4-5.4); Monocytes # (auto) 0.3 10 ^3/uL (0-1.3); White Blood Cell 16.7 10^3/uL (4.4-10.8)
[2020-02-28 08:55] LABS: Hematocrit 25.9 % (36.0-46.0); Hemoglobin 8.5 g/dL (12.2-16.2); Lymphocytes % (auto) 0.5 % (10.0-50.0); Mean Corpuscular Hemoglobin 27.1 pg (28.0-32.0); Mean Corpuscular Hgb Conc. 32.7 g/dL (32.0-36.0); Mean Corpuscular Volume 82.7 fL (80.0-100.0); Neutrophils # (auto) 16.3 10 ^3/uL (1.6-8.6); Neutrophils % (auto) 97.4 % (37.0-80.0); Nucleated Red Blood Cells % 0.1 %; Platelet Count (auto) 59 10^3/uL (140-450); Red Blood Cells 3.13 10^6/uL (4.0-5.20); Red Cell Distribution Width 16.5 % (11.8-14.3)
[2020-02-28 09:08] LABS: Potassium 3.6 mmol/L (3.5-5.1)
[2020-02-28 09:24] LABS: Albumin 1.2 g/dL (3.4-5.0); BUN/Creatinine Ratio 62.4; Bilirubin, Total 0.3 mg/dL (0.2-1.0); Calcium 7.5 mg/dL (8.5-10.1); Phosphorus 5.4 mg/dL (2.5-4.90); Total Protein 5.2 g/dL (6.4-8.2)
[2020-02-28] MEDS: METOPROLOL TARTRATE 25 MG TAB GT SCH ×2 (10:00→22:00)
[2020-02-28] MEDS: INSULIN LANTUS (GLARGINE) 1 /0.01ml (100units/ml) SC SCH (10:00)
[2020-02-28] MEDS: SODIUM CHLOR 0.9% PF (SALINE LOCK) 10ML VIAL/SYR IV SCH ×2 (10:00→22:00)
[2020-02-28] MEDS: FAMOTIDINE (10MG/ML) 2ML VL IV SCH (10:00)
[2020-02-28] MEDS: MIDAZOLAM DRIP 50 mg/50mL 50 ML IV SCH (11:12)
[2020-02-28] MEDS: fentaNYL Drip 2500mCg/250mlNS 250 ML IV SCH (11:30)
[2020-02-28] MEDS: CEFEPIME 1 GM in SODIUM CHL 0.9% 50 ML IV SCH (12:30)
[2020-02-28] MEDS: LACTATED RINGER'S 1,000 ML IV SCH (12:30)
[2020-02-28 13:41] LABS: Creatinine, Urine 89 mg/dL (30.0-125.0); Sodium Urine < 5 mmol/L (40-220)
[2020-02-28] MEDS ORDERED: CALCIUM GLUC IV NR ×9 (20:00)
[2020-02-28] MEDS ORDERED: SODIUM ACETATE IV NR ×9 (20:00)
[2020-02-28] MEDS ORDERED: [UNRECOGNIZED DRUG - OTHER] IV NR ×9 (20:00)
[2020-02-28] MEDS ORDERED: POTASSIUM ACETATE IV NR ×9 (20:00)
[2020-02-28] MEDS: ENOXAPARIN SOD 60 MG/0.6 ML SYRINGE SC SCH (22:00)
[2020-02-28] MEDS: DexAMETHasone SOD PHOS 10MG/1ML VIAL INJ IV SCH (22:00)
[2020-02-29] VITALS (95 sets, daily range): BP systolic 97–150; BP diastolic 32–63
[2020-02-29] MEDS: PROPOFOL 100 ML IV SCH ×4 (01:00→18:59)
[2020-02-29 05:29] LABS: Eosinophils # (auto) 0 10 ^3/uL (0-0.8); Hemoglobin 8.2 g/dL (12.2-16.2); Lymphocytes # (auto) 0.1 10 ^3/uL (0.4-5.4); Monocytes # (auto) 0.6 10 ^3/uL (0-1.3)
[2020-02-29 05:30] LABS: Basophils # (auto) 0.1 10 ^3/uL (0-0.2); Basophils % (auto) 0.3 % (0.0-2.0); Hematocrit 25.3 % (36.0-46.0); Lymphocytes % (auto) 0.5 % (10.0-50.0); Mean Corpuscular Hemoglobin 26.5 pg (28.0-32.0); Mean Corpuscular Hgb Conc. 32.3 g/dL (32.0-36.0); Monocytes % (auto) 2.7 % (0.0-12.0); Neutrophils # (auto) 20.9 10 ^3/uL (1.6-8.6); Neutrophils % (auto) 96.5 % (37.0-80.0); Platelet Count (auto) 72 10^3/uL (140-450); Red Blood Cells 3.08 10^6/uL (4.0-5.20); Red Cell Distribution Width 16.8 % (11.8-14.3); White Blood Cell 21.7 10^3/uL (4.4-10.8)
[2020-02-29] MEDS: InsuLIN REG 1unit/0.01ml Soln (100units/ml) SC SCH ×4 (06:02→17:58)
[2020-02-29] MEDS: ACCU-CHEK COMFORT CURVE STRIP VI SCH ×4 (06:02→17:57)
[2020-02-29 06:03] LABS: Potassium 4.5 mmol/L (3.5-5.1)
[2020-02-29 06:09] LABS: Albumin 1.1 g/dL (3.4-5.0); Bilirubin, Total 0.2 mg/dL (0.2-1.0); Calcium 7.5 mg/dL (8.5-10.1); Magnesium 2.1 mg/dL (1.6-2.6); Phosphorus 5.6 mg/dL (2.5-4.90); Total Protein 4.9 g/dL (6.4-8.2)
[2020-02-29 06:18] LABS: BUN/Creatinine Ratio 55.8
[2020-02-29] MEDS: LACTATED RINGER'S 1,000 ML IV SCH (07:00)
[2020-02-29] MEDS: FAMOTIDINE (10MG/ML) 2ML VL IV SCH (09:51)
[2020-02-29] MEDS: SODIUM CHLOR 0.9% PF (SALINE LOCK) 10ML VIAL/SYR IV SCH ×2 (09:51→22:00)
[2020-02-29] MEDS: INSULIN LANTUS (GLARGINE) 1 /0.01ml (100units/ml) SC SCH (09:52)
[2020-02-29] MEDS: METOPROLOL TARTRATE 25 MG TAB GT SCH ×2 (09:53→22:00)
[2020-02-29] MEDS: fentaNYL Drip 2500mCg/250mlNS 250 ML IV SCH (11:30)
[2020-02-29] MEDS: MIDAZOLAM DRIP 50 mg/50mL 50 ML IV SCH (11:30)
[2020-02-29] MEDS: CEFEPIME 1 GM in SODIUM CHL 0.9% 50 ML IV SCH ×2 (12:05→22:00)
[2020-02-29] MEDS ORDERED: BUMETANIDE 2.5mg/10ml (0.25 mg/ml) INJ IV ONE (15:15)
[2020-02-29] MEDS ORDERED: TPN PER PHARMACY IV NR ×10 (20:00)
[2020-02-29] MEDS: ENOXAPARIN SOD 40 MG/0.4 ML SYRINGE SC SCH (22:00)
[2020-03-01] VITALS (85 sets, daily range): BP systolic 120–163; BP diastolic 23–61
[2020-03-01] MEDS: LACTATED RINGER'S 1,000 ML IV SCH ×2 (04:00→20:00)
[2020-03-01] MEDS: fentaNYL Drip 2500mCg/250mlNS 250 ML IV SCH ×2 (04:00→20:00)
[2020-03-01 04:33] LABS: Basophils # (auto) 0 10 ^3/uL (0-0.2); Eosinophils # (auto) 0 10 ^3/uL (0-0.8); Hemoglobin 8.3 g/dL (12.2-16.2); Lymphocytes # (auto) 0.2 10 ^3/uL (0.4-5.4); Lymphocytes % (auto) 1.1 % (10.0-50.0); Neutrophils # (auto) 17.5 10 ^3/uL (1.6-8.6)
[2020-03-01 04:38] LABS: Hematocrit 25.4 % (36.0-46.0); Mean Corpuscular Hemoglobin 26.6 pg (28.0-32.0); Mean Corpuscular Hgb Conc. 32.4 g/dL (32.0-36.0); Mean Corpuscular Volume 81.9 fL (80.0-100.0); Monocytes # (auto) 1.1 10 ^3/uL (0-1.3); Monocytes % (auto) 5.9 % (0.0-12.0); Nucleated Red Blood Cells % 0.1 %; Platelet Count (auto) 71 10^3/uL (140-450); Red Blood Cells 3.11 10^6/uL (4.0-5.20); Red Cell Distribution Width 16.8 % (11.8-14.3); White Blood Cell 18.8 10^3/uL (4.4-10.8)
[2020-03-01 04:56] LABS: Calcium 7.6 mg/dL (8.5-10.1); Potassium 4.6 mmol/L (3.5-5.1)
[2020-03-01 05:05] LABS: BUN/Creatinine Ratio 57.6
[2020-03-01] MEDS: PROPOFOL 100 ML IV SCH ×3 (06:00→22:00)
[2020-03-01] MEDS: InsuLIN REG 1unit/0.01ml Soln (100units/ml) SC SCH ×4 (06:00→18:21)
[2020-03-01] MEDS: Nepro With Carb Steady 1 Liter Bottle GT SCH (06:00)
[2020-03-01] MEDS: ACCU-CHEK COMFORT CURVE STRIP VI SCH ×4 (06:14→18:21)
[2020-03-01] MEDS: FAMOTIDINE (10MG/ML) 2ML VL IV SCH (10:28)
[2020-03-01] MEDS: CEFEPIME 1 GM in SODIUM CHL 0.9% 50 ML IV SCH ×2 (10:28→22:00)
[2020-03-01] MEDS: METOPROLOL TARTRATE 25 MG TAB GT SCH ×2 (10:28→22:00)
[2020-03-01] MEDS: SODIUM CHLOR 0.9% PF (SALINE LOCK) 10ML VIAL/SYR IV SCH ×2 (10:28→22:00)
[2020-03-01] MEDS: INSULIN LANTUS (GLARGINE) 1 /0.01ml (100units/ml) SC SCH (10:29)
[2020-03-01] MEDS: MIDAZOLAM DRIP 50 mg/50mL 50 ML IV SCH (11:30)
[2020-03-01] MEDS: DOPamine 1600MCG/ML D5W 250 ML IV SCH (20:00)
[2020-03-01] MEDS: ENOXAPARIN SOD 40 MG/0.4 ML SYRINGE SC SCH (22:00)
[2020-03-02] VITALS (97 sets, daily range): BP systolic 126–185; BP diastolic 28–63
[2020-03-02] MEDS: InsuLIN REG 1unit/0.01ml Soln (100units/ml) SC SCH ×4 (06:00→17:22)
[2020-03-02] MEDS: ACCU-CHEK COMFORT CURVE STRIP VI SCH ×4 (06:00→17:22)
[2020-03-02 06:10] LABS: Red Blood Cells 3.07 10^6/uL (4.0-5.20)
[2020-03-02 06:13] LABS: Hematocrit 25.2 % (36.0-46.0); Hemoglobin 8.4 g/dL (12.2-16.2); Mean Corpuscular Hemoglobin 27.4 pg (28.0-32.0); Mean Corpuscular Hgb Conc. 33.3 g/dL (32.0-36.0); Mean Corpuscular Volume 82.1 fL (80.0-100.0); Platelet Count (auto) 101 10^3/uL (140-450); White Blood Cell 20.7 10^3/uL (4.4-10.8)
[2020-03-02 06:40] LABS: Band Neutrophils % (manual) 0; Basophils % (manual) 0 (0.0-2.0); Blast Cells 0; Eosinophils % (manual) 0 (0-7); Metamyelocytes % 0; Myelocytes % 0; Promyelocytes % 0; Reactive Lymphocytes 0
[2020-03-02 06:46] LABS: Potassium 4.8 mmol/L (3.5-5.1)
[2020-03-02 06:59] LABS: BUN/Creatinine Ratio 64.1; Calcium 7.7 mg/dL (8.5-10.1)
[2020-03-02 08:39] LABS: Lymphocytes % (manual) 12 (10.0-50.0); Monocytes % (manual) 1 (0-12)
[2020-03-02] MEDS ORDERED: BUMETANIDE 2.5mg/10ml (0.25 mg/ml) INJ IV ONE (09:30)
[2020-03-02] MEDS: DOPamine 1600MCG/ML D5W 250 ML IV SCH ×2 (10:10→19:32)
[2020-03-02] MEDS: INSULIN LANTUS (GLARGINE) 1 /0.01ml (100units/ml) SC SCH (10:26)
[2020-03-02] MEDS: CEFEPIME 1 GM in SODIUM CHL 0.9% 50 ML IV SCH ×2 (10:26→22:00)
[2020-03-02] MEDS: FAMOTIDINE (10MG/ML) 2ML VL IV SCH (10:26)
[2020-03-02] MEDS: METOPROLOL TARTRATE 25 MG TAB GT SCH ×2 (10:26→22:00)
[2020-03-02] MEDS: SODIUM CHLOR 0.9% PF (SALINE LOCK) 10ML VIAL/SYR IV SCH ×2 (10:26→22:00)
[2020-03-02] MEDS: MIDAZOLAM DRIP 50 mg/50mL 50 ML IV SCH (10:27)
[2020-03-02] MEDS: DEXTROSE (50%) 50ML SYRG IV SCH (12:36)
[2020-03-02] MEDS: D5W/LACTATED RINGERS 1,000 ML IV SCH (12:45)
[2020-03-02] MEDS: PROPOFOL 100 ML IV SCH (20:00)
[2020-03-02] MEDS: Nepro With Carb Steady 1 Liter Bottle GT SCH (22:00)
[2020-03-02] MEDS: ENOXAPARIN SOD 40 MG/0.4 ML SYRINGE SC SCH (22:00)
[2020-03-03] VITALS (89 sets, daily range): BP systolic 123–190; BP diastolic 10–118
[2020-03-03] MEDS: ACCU-CHEK COMFORT CURVE STRIP VI SCH ×4 (06:06→18:00)
[2020-03-03] MEDS: InsuLIN REG 1unit/0.01ml Soln (100units/ml) SC SCH ×4 (06:07→18:05)
[2020-03-03] MEDS: D5W/LACTATED RINGERS 1,000 ML IV SCH (07:00)
[2020-03-03] MEDS: DOPamine 1600MCG/ML D5W 250 ML IV SCH (07:00)
[2020-03-03 07:31] LABS: Hemoglobin 7.7 g/dL (12.2-16.2)
[2020-03-03 07:34] LABS: Hematocrit 23.2 % (36.0-46.0); Mean Corpuscular Hemoglobin 27.1 pg (28.0-32.0); Platelet Count (auto) 110 10^3/uL (140-450); Red Blood Cells 2.84 10^6/uL (4.0-5.20); Red Cell Distribution Width 17.2 % (11.8-14.3)
[2020-03-03 07:42] LABS: Potassium 4.9 mmol/L (3.5-5.1)
[2020-03-03 07:54] LABS: BUN/Creatinine Ratio 62.6; Calcium 7.9 mg/dL (8.5-10.1)
[2020-03-03 08:06] LABS: Basophils % (manual) 0 (0.0-2.0); Blast Cells 0; Eosinophils % (manual) 0 (0-7); Monocytes % (manual) 0 (0-12); Promyelocytes % 0; Reactive Lymphocytes 0
[2020-03-03] MEDS: SODIUM CHLOR 0.9% PF (SALINE LOCK) 10ML VIAL/SYR IV SCH ×2 (10:00→21:33)
[2020-03-03] MEDS: FAMOTIDINE (10MG/ML) 2ML VL IV SCH (10:00)
[2020-03-03] MEDS: METOPROLOL TARTRATE 25 MG TAB GT SCH ×2 (10:00→22:14)
[2020-03-03] MEDS: INSULIN LANTUS (GLARGINE) 1 /0.01ml (100units/ml) SC SCH (10:00)
[2020-03-03] MEDS: CEFEPIME 1 GM in SODIUM CHL 0.9% 50 ML IV SCH (11:13)
[2020-03-03] MEDS: MIDAZOLAM DRIP 50 mg/50mL 50 ML IV SCH (11:18)
[2020-03-03] MEDS: fentaNYL Drip 2500mCg/250mlNS 250 ML IV SCH (11:30)
[2020-03-03 12:03] LABS: Band Neutrophils % (manual) 17; Lymphocytes % (manual) 3 (10.0-50.0); Metamyelocytes % 2; Myelocytes % 1
[2020-03-03] MEDS ORDERED: hydrALAZINE HCL 20 MG/ML VL ONE (12:45)
[2020-03-03] MEDS: PROPOFOL 100 ML IV SCH (17:32)
[2020-03-03] MEDS: Nepro With Carb Steady 1 Liter Bottle GT SCH (21:30)
[2020-03-03] MEDS: hydrALAZINE HCL 20 MG/ML VL IV PRN (21:33)
[2020-03-03] MEDS: ENOXAPARIN SOD 40 MG/0.4 ML SYRINGE SC SCH (22:14)
[2020-03-04] VITALS (80 sets, daily range): BP systolic 120–164; BP diastolic 10–19
[2020-03-04] MEDS: D5W/LACTATED RINGERS 1,000 ML IV SCH
[2020-03-04] MEDS: ACCU-CHEK COMFORT CURVE STRIP VI SCH ×4 (06:00→18:12)
[2020-03-04] MEDS: InsuLIN REG 1unit/0.01ml Soln (100units/ml) SC SCH ×4 (06:00→18:13)
[2020-03-04 06:34] LABS: Hemoglobin 7.4 g/dL (12.2-16.2); Mean Corpuscular Volume 81.9 fL (80.0-100.0)
[2020-03-04 06:37] LABS: Hematocrit 22.3 % (36.0-46.0); Mean Corpuscular Hemoglobin 27.2 pg (28.0-32.0); Mean Corpuscular Hgb Conc. 33.2 g/dL (32.0-36.0); Platelet Count (auto) 132 10^3/uL (140-450); Red Blood Cells 2.72 10^6/uL (4.0-5.20); Red Cell Distribution Width 17.2 % (11.8-14.3); White Blood Cell 18.3 10^3/uL (4.4-10.8)
[2020-03-04 06:50] LABS: Potassium 5.2 mmol/L (3.5-5.1)
[2020-03-04 06:59] LABS: Basophils % (manual) 0 (0.0-2.0); Blast Cells 0; Promyelocytes % 0; Reactive Lymphocytes 0
[2020-03-04] MEDS: SODIUM CHLOR 0.9% PF (SALINE LOCK) 10ML VIAL/SYR IV SCH ×2 (10:00→22:00)
[2020-03-04] MEDS: CEFEPIME 1 GM in SODIUM CHL 0.9% 50 ML IV SCH (10:14)
[2020-03-04] MEDS: INSULIN LANTUS (GLARGINE) 1 /0.01ml (100units/ml) SC SCH (10:15)
[2020-03-04] MEDS: METOPROLOL TARTRATE 25 MG TAB GT SCH ×2 (10:17→22:00)
[2020-03-04 10:43] LABS: Band Neutrophils % (manual) 3; Eosinophils % (manual) 1 (0-7); Lymphocytes % (manual) 1 (10.0-50.0); Metamyelocytes % 1; Monocytes % (manual) 1 (0-12); Myelocytes % 2
[2020-03-04] MEDS ORDERED: BUMETANIDE 2.5mg/10ml (0.25 mg/ml) INJ IV ONE (11:00)
[2020-03-04] MEDS: fentaNYL Drip 2500mCg/250mlNS 250 ML IV SCH (11:30)
[2020-03-04] MEDS: MIDAZOLAM DRIP 50 mg/50mL 50 ML IV SCH ×2 (11:30→11:48)
[2020-03-04] MEDS: ENOXAPARIN SOD 40 MG/0.4 ML SYRINGE SC SCH (22:00)
[2020-03-05] VITALS (82 sets, daily range): BP systolic 131–188; BP diastolic 10–27
[2020-03-05] MEDS: D5W/LACTATED RINGERS 1,000 ML IV SCH
[2020-03-05] MEDS: InsuLIN REG 1unit/0.01ml Soln (100units/ml) SC SCH ×5 (06:00→23:38)
[2020-03-05] MEDS: ACCU-CHEK COMFORT CURVE STRIP VI SCH ×5 (06:00→23:40)
[2020-03-05 07:45] LABS: Hematocrit 20.8 % (36.0-46.0); Platelet Count (auto) 146 10^3/uL (140-450)
[2020-03-05 07:48] LABS: Mean Corpuscular Hemoglobin 26.7 pg (28.0-32.0); Mean Corpuscular Hgb Conc. 32.1 g/dL (32.0-36.0); Red Cell Distribution Width 17.8 % (11.8-14.3)
[2020-03-05] MEDS: PROPOFOL 100 ML IV SCH (08:04)
[2020-03-05 08:05] LABS: Hemoglobin 6.7 g/dL (12.2-16.2)
[2020-03-05 08:06] LABS: Basophils % (manual) 0 (0.0-2.0); Blast Cells 0; Myelocytes % 0; Promyelocytes % 0; Reactive Lymphocytes 0
[2020-03-05 08:22] LABS: Calcium 8.3 mg/dL (8.5-10.1)
[2020-03-05 08:26] LABS: BUN/Creatinine Ratio 56.9
[2020-03-05] MEDS: METOPROLOL TARTRATE 25 MG TAB GT SCH ×2 (09:30→22:00)
[2020-03-05] MEDS: FAMOTIDINE (10MG/ML) 2ML VL IV SCH (09:30)
[2020-03-05] MEDS: INSULIN LANTUS (GLARGINE) 1 /0.01ml (100units/ml) SC SCH (09:30)
[2020-03-05] MEDS ORDERED: SODIUM BICARBONATE 50ML VIAL 100 ML in D5W 5% 1,000 ML IV SCH (09:45)
[2020-03-05] MEDS ORDERED: DOPamine 1600MCG/ML D5W 250 ML IV SCH (09:45)
[2020-03-05] MEDS: SODIUM CHLOR 0.9% PF (SALINE LOCK) 10ML VIAL/SYR IV SCH ×2 (10:00→22:25)
[2020-03-05] MEDS: DOPamine 1600MCG/ML D5W 250 ML IV SCH (10:45)
[2020-03-05] MEDS: CEFEPIME 1 GM in SODIUM CHL 0.9% 50 ML IV SCH (11:00)
[2020-03-05] MEDS: MIDAZOLAM DRIP 50 mg/50mL 50 ML IV SCH (11:30)
[2020-03-05] MEDS: fentaNYL Drip 2500mCg/250mlNS 250 ML IV SCH (11:30)
[2020-03-05 11:59] LABS: Band Neutrophils % (manual) 1; Eosinophils % (manual) 1 (0-7); Lymphocytes % (manual) 3 (10.0-50.0); Metamyelocytes % 3; Monocytes % (manual) 5 (0-12)
[2020-03-05] MEDS: SODIUM BICARBONATE 50ML VIAL 150 ML in D5W 5% 1,000 ML IV SCH ×2 (12:30→22:15)
[2020-03-05] MEDS: SODIUM ZIRCONIUM CYCL 10 GM PAK PO SCH ×2 (14:30→22:00)
[2020-03-05] MEDS ORDERED: BUMETANIDE 2.5mg/10ml (0.25 mg/ml) INJ IV ONE (19:00)
[2020-03-05] MEDS: ENOXAPARIN SOD 40 MG/0.4 ML SYRINGE SC SCH (22:00)
[2020-03-05 22:01] LABS: Creatinine, Urine 64 mg/dL (30.0-125.0); Sodium Urine 12 mmol/L (40-220)
[2020-03-06] VITALS (92 sets, daily range): BP systolic 134–242; BP diastolic 18–68
[2020-03-06] MEDS: PROPOFOL 100 ML IV SCH ×3 (01:55→20:54)
[2020-03-06 04:26] LABS: Hemoglobin 7.9 g/dL (12.2-16.2); Mean Corpuscular Hgb Conc. 32.6 g/dL (32.0-36.0)
[2020-03-06 04:31] LABS: Hematocrit 24.2 % (36.0-46.0); Platelet Count (auto) 156 10^3/uL (140-450); Red Blood Cells 2.91 10^6/uL (4.0-5.20); Red Cell Distribution Width 16.9 % (11.8-14.3); White Blood Cell 17.8 10^3/uL (4.4-10.8)
[2020-03-06 04:57] LABS: Calcium 8.1 mg/dL (8.5-10.1); Potassium 5.3 mmol/L (3.5-5.1)
[2020-03-06 05:15] LABS: Band Neutrophils % (manual) 0; Basophils % (manual) 0 (0.0-2.0); Blast Cells 0; Eosinophils % (manual) 0 (0-7); Promyelocytes % 0; Reactive Lymphocytes 0
[2020-03-06 05:45] LABS: BUN/Creatinine Ratio 53.4
[2020-03-06 06:48] LABS: Lymphocytes % (manual) 4 (10.0-50.0); Metamyelocytes % 1; Myelocytes % 1
[2020-03-06 06:49] LABS: Monocytes % (manual) 2 (0-12)
[2020-03-06] MEDS: SODIUM ZIRCONIUM CYCL 10 GM PAK PO SCH ×2 (09:00→14:00)
[2020-03-06] MEDS: SODIUM CHLOR 0.9% PF (SALINE LOCK) 10ML VIAL/SYR IV SCH ×2 (10:00→21:52)
[2020-03-06] MEDS: METOPROLOL TARTRATE 25 MG TAB GT SCH ×2 (10:00→21:52)
[2020-03-06] MEDS: INSULIN LANTUS (GLARGINE) 1 /0.01ml (100units/ml) SC SCH (10:00)
[2020-03-06] MEDS: CEFEPIME 1 GM in SODIUM CHL 0.9% 50 ML IV SCH (10:00)
[2020-03-06 10:06] LABS: Potassium 5.7 mmol/L (3.5-5.1)
[2020-03-06] MEDS: DOPamine 1600MCG/ML D5W 250 ML IV SCH (10:45)
[2020-03-06] MEDS: MIDAZOLAM DRIP 50 mg/50mL 50 ML IV SCH (11:30)
[2020-03-06] MEDS: fentaNYL Drip 2500mCg/250mlNS 250 ML IV SCH (11:30)
[2020-03-06] MEDS: ACCU-CHEK COMFORT CURVE STRIP VI SCH ×2 (12:00→18:00)
[2020-03-06] MEDS: InsuLIN REG 1unit/0.01ml Soln (100units/ml) SC SCH ×2 (12:00→18:00)
[2020-03-06] MEDS: SODIUM BICARBONATE 50ML VIAL 150 ML in D5W 5% 1,000 ML IV SCH ×2 (14:00→17:40)
[2020-03-06] MEDS ORDERED: SODIUM ZIRCONIUM CYCL 10 GM PAK PO ONE (18:45)
[2020-03-06] MEDS: ENOXAPARIN SOD 40 MG/0.4 ML SYRINGE SC SCH (21:53)
[2020-03-07] VITALS (93 sets, daily range): BP systolic 104–157; BP diastolic 31–65
[2020-03-07] MEDS: InsuLIN REG 1unit/0.01ml Soln (100units/ml) SC SCH ×4 (00:48→18:46)
[2020-03-07] MEDS: ACCU-CHEK COMFORT CURVE STRIP VI SCH ×3 (00:49→18:00)
[2020-03-07] MEDS: SODIUM BICARBONATE 50ML VIAL 150 ML in D5W 5% 1,000 ML IV SCH ×3 (00:50→19:34)
[2020-03-07 05:01] LABS: Eosinophils # (auto) 0.2 10 ^3/uL (0-0.8); Eosinophils % (auto) 1.2 % (0.0-7.0); Hemoglobin 7.9 g/dL (12.2-16.2); Monocytes # (auto) 0.7 10 ^3/uL (0-1.3)
[2020-03-07 05:03] LABS: Basophils # (auto) 0.2 10 ^3/uL (0-0.2); Hematocrit 23.6 % (36.0-46.0); Lymphocytes # (auto) 0.3 10 ^3/uL (0.4-5.4); Lymphocytes % (auto) 1.5 % (10.0-50.0); Mean Corpuscular Hemoglobin 27.5 pg (28.0-32.0); Mean Corpuscular Hgb Conc. 33.4 g/dL (32.0-36.0); Mean Corpuscular Volume 82.3 fL (80.0-100.0); Monocytes % (auto) 3.5 % (0.0-12.0); Neutrophils # (auto) 18.5 10 ^3/uL (1.6-8.6); Neutrophils % (auto) 92.8 % (37.0-80.0); Nucleated Red Blood Cells % 0.1 %; Platelet Count (auto) 156 10^3/uL (140-450); Red Blood Cells 2.86 10^6/uL (4.0-5.20); Red Cell Distribution Width 17.5 % (11.8-14.3)
[2020-03-07 05:23] LABS: Potassium 4.5 mmol/L (3.5-5.1)
[2020-03-07 05:34] LABS: BUN/Creatinine Ratio 51.9; Calcium 7.8 mg/dL (8.5-10.1)
[2020-03-07] MEDS: METOPROLOL TARTRATE 25 MG TAB GT SCH ×2 (10:17→22:00)
[2020-03-07] MEDS: CEFEPIME 1 GM in SODIUM CHL 0.9% 50 ML IV SCH (10:22)
[2020-03-07] MEDS: FAMOTIDINE (10MG/ML) 2ML VL IV SCH (10:24)
[2020-03-07] MEDS: SODIUM CHLOR 0.9% PF (SALINE LOCK) 10ML VIAL/SYR IV SCH ×2 (10:26→22:21)
[2020-03-07] MEDS: INSULIN LANTUS (GLARGINE) 1 /0.01ml (100units/ml) SC SCH (11:14)
[2020-03-07] MEDS: DOPamine 1600MCG/ML D5W 250 ML IV SCH (11:21)
[2020-03-07] MEDS: fentaNYL Drip 2500mCg/250mlNS 250 ML IV SCH (12:52)
[2020-03-07] MEDS: MIDAZOLAM DRIP 50 mg/50mL 50 ML IV SCH (12:53)
[2020-03-07] MEDS: BUMETANIDE INJECTION 12.5 MG in GIVE UN-DILUTED 0 ML IV SCH (14:00)
[2020-03-07] MEDS: ENOXAPARIN SOD 40 MG/0.4 ML SYRINGE SC SCH (22:22)
[2020-03-08] VITALS (52 sets, daily range): BP systolic 113–186; BP diastolic 29–66
[2020-03-08] MEDS: ACCU-CHEK COMFORT CURVE STRIP VI SCH ×3 (00:09→12:27)
[2020-03-08] MEDS: SODIUM BICARBONATE 50ML VIAL 150 ML in D5W 5% 1,000 ML IV SCH ×2 (00:20→06:08)
[2020-03-08] MEDS ORDERED: SODIUM BICARBONATE 8.4 % INJ 50ML VIAL IV ONE (02:23)
[2020-03-08] MEDS: PROPOFOL 100 ML IV SCH (03:21)
[2020-03-08 05:16] LABS: Eosinophils # (auto) 0 10 ^3/uL (0-0.8); Eosinophils % (auto) 0.2 % (0.0-7.0); Lymphocytes % (auto) 1.3 % (10.0-50.0); Monocytes # (auto) 0.6 10 ^3/uL (0-1.3)
[2020-03-08 05:18] LABS: Basophils # (auto) 0.1 10 ^3/uL (0-0.2); Basophils % (auto) 0.8 % (0.0-2.0); Hematocrit 20.9 % (36.0-46.0); Lymphocytes # (auto) 0.3 10 ^3/uL (0.4-5.4); Mean Corpuscular Hemoglobin 27.3 pg (28.0-32.0); Mean Corpuscular Hgb Conc. 32.8 g/dL (32.0-36.0); Mean Corpuscular Volume 83.2 fL (80.0-100.0); Neutrophils # (auto) 18.7 10 ^3/uL (1.6-8.6); Neutrophils % (auto) 94.7 % (37.0-80.0); Nucleated Red Blood Cells % 0.2 %; Platelet Count (auto) 144 10^3/uL (140-450); Red Blood Cells 2.52 10^6/uL (4.0-5.20); White Blood Cell 19.7 10^3/uL (4.4-10.8)
[2020-03-08 05:38] LABS: Potassium 4.5 mmol/L (3.5-5.1)
[2020-03-08 05:52] LABS: BUN/Creatinine Ratio 50.8; Bilirubin, Total 0.4 mg/dL (0.2-1.0); Calcium 7.2 mg/dL (8.5-10.1); Total Protein 5.1 g/dL (6.4-8.2)
[2020-03-08] MEDS: InsuLIN REG 1unit/0.01ml Soln (100units/ml) SC SCH ×3 (06:17→12:26)
[2020-03-08 07:00] LABS: Albumin 0.8 g/dL (3.4-5.0)
[2020-03-08] MEDS ORDERED: CEFEPIME 1 GM in SODIUM CHL 0.9% 50 ML IV SCH (10:00)
[2020-03-08] MEDS: DOPamine 1600MCG/ML D5W 250 ML IV SCH (10:45)
[2020-03-08] MEDS: MIDAZOLAM DRIP 50 mg/50mL 50 ML IV SCH (11:30)
[2020-03-08] MEDS: CEFEPIME 1 GM in SODIUM CHL 0.9% 50 ML IV SCH (12:13)
[2020-03-08] MEDS: SODIUM CHLOR 0.9% PF (SALINE LOCK) 10ML VIAL/SYR IV SCH ×2 (12:13→22:00)
[2020-03-08] MEDS: INSULIN LANTUS (GLARGINE) 1 /0.01ml (100units/ml) SC SCH (12:15)
[2020-03-08] MEDS: METOPROLOL TARTRATE 25 MG TAB GT SCH (22:00)
[2020-03-08] MEDS: ENOXAPARIN SOD 40 MG/0.4 ML SYRINGE SC SCH (22:00)
[2020-03-09] VITALS (78 sets, daily range): BP systolic 125–219; BP diastolic 44–81
[2020-03-09] MEDS: SODIUM BICARBONATE 50ML VIAL 150 ML in D5W 5% 1,000 ML IV SCH (01:00)
[2020-03-09] MEDS: hydrALAZINE HCL 20 MG/ML VL IV PRN ×2 (01:16→05:09)
[2020-03-09] MEDS: ACCU-CHEK COMFORT CURVE STRIP VI SCH ×5 (05:30→18:00)
[2020-03-09] MEDS: InsuLIN REG 1unit/0.01ml Soln (100units/ml) SC SCH ×5 (05:39→18:00)
[2020-03-09 05:46] LABS: Hematocrit 31.5 % (36.0-46.0); Hemoglobin 10.9 g/dL (12.2-16.2)
[2020-03-09] MEDS: METOPROLOL TARTRATE 25 MG TAB GT SCH ×3 (11:00→20:07)
[2020-03-09] MEDS: PROPOFOL 100 ML IV SCH ×2 (11:39→20:08)
[2020-03-09] MEDS: CEFEPIME 1 GM in SODIUM CHL 0.9% 50 ML IV SCH (12:24)
[2020-03-09] MEDS: FAMOTIDINE (10MG/ML) 2ML VL IV SCH (12:24)
[2020-03-09] MEDS: INSULIN LANTUS (GLARGINE) 1 /0.01ml (100units/ml) SC SCH (12:27)
[2020-03-09] MEDS: SODIUM CHLOR 0.9% PF (SALINE LOCK) 10ML VIAL/SYR IV SCH ×2 (12:28→22:00)
[2020-03-09] MEDS: BUMETANIDE INJECTION 12.5 MG in GIVE UN-DILUTED 0 ML IV SCH ×2 (14:00→15:30)
[2020-03-10] VITALS (72 sets, daily range): BP systolic 105–169; BP diastolic 30–78
[2020-03-10] MEDS: ACCU-CHEK COMFORT CURVE STRIP VI SCH ×4 (00:04→18:00)
[2020-03-10] MEDS: PROPOFOL 100 ML IV SCH ×3 (01:00→21:54)
[2020-03-10] MEDS: hydrALAZINE HCL 20 MG/ML VL IV PRN (01:03)
[2020-03-10] MEDS: InsuLIN REG 1unit/0.01ml Soln (100units/ml) SC SCH ×4 (05:40→18:00)
[2020-03-10] MEDS: INSULIN LANTUS (GLARGINE) 1 /0.01ml (100units/ml) SC SCH (10:00)
[2020-03-10] MEDS: CEFEPIME 1 GM in SODIUM CHL 0.9% 50 ML IV SCH (10:00)
[2020-03-10] MEDS: METOPROLOL TARTRATE 25 MG TAB GT SCH ×2 (10:00→22:04)
[2020-03-10] MEDS: SODIUM CHLOR 0.9% PF (SALINE LOCK) 10ML VIAL/SYR IV SCH ×2 (10:00→22:00)
[2020-03-10 10:08] LABS: Calcium 7.3 mg/dL (8.5-10.1); Potassium 3.3 mmol/L (3.5-5.1)
[2020-03-10 10:16] LABS: BUN/Creatinine Ratio 48.5
[2020-03-10] MEDS: BUMETANIDE INJECTION 12.5 MG in GIVE UN-DILUTED 0 ML IV SCH (11:15)
[2020-03-10] MEDS: MIDAZOLAM DRIP 50 mg/50mL 50 ML IV SCH (16:21)
[2020-03-10] MEDS ORDERED: SODIUM CHLORIDE 0.9% 1,000 ML IV ONE (17:30)
[2020-03-11] VITALS (62 sets, daily range): BP systolic 97–141; BP diastolic 25–77
[2020-03-11] MEDS: MIDAZOLAM DRIP 50 mg/50mL 50 ML IV SCH ×3 (01:00→23:00)
[2020-03-11] MEDS: DOPamine 1600MCG/ML D5W 250 ML IV SCH (04:58)
[2020-03-11] MEDS: ACCU-CHEK COMFORT CURVE STRIP VI SCH ×4 (05:38→18:00)
[2020-03-11] MEDS: InsuLIN REG 1unit/0.01ml Soln (100units/ml) SC SCH ×4 (05:39→18:00)
[2020-03-11] MEDS: PROPOFOL 100 ML IV SCH ×3 (09:30→19:16)
[2020-03-11] MEDS: METOPROLOL TARTRATE 25 MG TAB GT SCH ×2 (10:00→21:09)
[2020-03-11] MEDS: FAMOTIDINE (10MG/ML) 2ML VL IV SCH (10:00)
[2020-03-11] MEDS: SODIUM CHLOR 0.9% PF (SALINE LOCK) 10ML VIAL/SYR IV SCH ×2 (10:00→22:00)
[2020-03-11] MEDS: INSULIN LANTUS (GLARGINE) 1 /0.01ml (100units/ml) SC SCH (10:30)
[2020-03-11 11:07] LABS: Basophils # (auto) 0.2 10 ^3/uL (0-0.2); Eosinophils # (auto) 0.2 10 ^3/uL (0-0.8); Eosinophils % (auto) 1.1 % (0.0-7.0); Hematocrit 27.2 % (36.0-46.0); Hemoglobin 9.1 g/dL (12.2-16.2); Lymphocytes # (auto) 0.3 10 ^3/uL (0.4-5.4); Lymphocytes % (auto) 1.4 % (10.0-50.0); Mean Corpuscular Hemoglobin 28.1 pg (28.0-32.0); Mean Corpuscular Hgb Conc. 33.6 g/dL (32.0-36.0); Mean Corpuscular Volume 83.6 fL (80.0-100.0); Monocytes # (auto) 0.5 10 ^3/uL (0-1.3); Monocytes % (auto) 2.8 % (0.0-12.0); Neutrophils # (auto) 17.9 10 ^3/uL (1.6-8.6); Neutrophils % (auto) 93.7 % (37.0-80.0); Platelet Count (auto) 124 10^3/uL (140-450); Red Blood Cells 3.25 10^6/uL (4.0-5.20); White Blood Cell 19.2 10^3/uL (4.4-10.8)
[2020-03-11 11:24] LABS: Calcium 6.7 mg/dL (8.5-10.1); Potassium 3.5 mmol/L (3.5-5.1)
[2020-03-11 11:33] LABS: BUN/Creatinine Ratio 48.9
[2020-03-11] MEDS: BUMETANIDE INJECTION 12.5 MG in GIVE UN-DILUTED 0 ML IV SCH (12:30)
[2020-03-11] MEDS: CEFEPIME 1 GM in SODIUM CHL 0.9% 50 ML IV SCH (13:00)
[2020-03-11] MEDS: fentaNYL Drip 2500mCg/250mlNS 250 ML IV SCH (21:06)
[2020-03-12] VITALS (30 sets, daily range): BP systolic 0–130; BP diastolic 0–73
[2020-03-12] MEDS: PROPOFOL 100 ML IV SCH ×2 (01:28→16:35)
[2020-03-12] MEDS: NOREPINEPHRINE 8 MG/250ML KIT 250 ML IV SCH (03:00)
[2020-03-12 05:54] LABS: Basophils # (auto) 0.1 10 ^3/uL (0-0.2); Basophils % (auto) 0.8 % (0.0-2.0); Eosinophils # (auto) 0.4 10 ^3/uL (0-0.8); Eosinophils % (auto) 2.7 % (0.0-7.0); Hematocrit 24.6 % (36.0-46.0); Hemoglobin 8.3 g/dL (12.2-16.2); Lymphocytes # (auto) 0.4 10 ^3/uL (0.4-5.4); Lymphocytes % (auto) 2.2 % (10.0-50.0); Mean Corpuscular Hemoglobin 28.3 pg (28.0-32.0); Mean Corpuscular Hgb Conc. 33.7 g/dL (32.0-36.0); Mean Corpuscular Volume 84.1 fL (80.0-100.0); Monocytes # (auto) 0.5 10 ^3/uL (0-1.3); Neutrophils # (auto) 14.5 10 ^3/uL (1.6-8.6); Neutrophils % (auto) 91.3 % (37.0-80.0); Platelet Count (auto) 100 10^3/uL (140-450); Red Blood Cells 2.92 10^6/uL (4.0-5.20); Red Cell Distribution Width 16.5 % (11.8-14.3); White Blood Cell 15.8 10^3/uL (4.4-10.8)
[2020-03-12 06:11] LABS: Potassium 3.6 mmol/L (3.5-5.1)
[2020-03-12 06:22] LABS: BUN/Creatinine Ratio 47.9; Calcium 6.4 mg/dL (8.5-10.1)
[2020-03-12] MEDS: ACCU-CHEK COMFORT CURVE STRIP VI SCH ×4 (08:05→18:00)
[2020-03-12] MEDS: InsuLIN REG 1unit/0.01ml Soln (100units/ml) SC SCH ×4 (08:05→18:00)
[2020-03-12] MEDS: DEXTROSE (50%) 50ML SYRG IV SCH (08:11)
[2020-03-12] MEDS: BUMETANIDE INJECTION 12.5 MG in GIVE UN-DILUTED 0 ML IV SCH (08:12)
[2020-03-12] MEDS: INSULIN LANTUS (GLARGINE) 1 /0.01ml (100units/ml) SC SCH (10:00)
[2020-03-12] MEDS: SODIUM CHLOR 0.9% PF (SALINE LOCK) 10ML VIAL/SYR IV SCH ×2 (10:00→22:00)
[2020-03-12] MEDS: METOPROLOL TARTRATE 25 MG TAB GT SCH ×2 (10:00→21:13)
[2020-03-12] MEDS: CEFEPIME 1 GM in SODIUM CHL 0.9% 50 ML IV SCH (10:03)
[2020-03-12] MEDS: fentaNYL Drip 2500mCg/250mlNS 250 ML IV SCH (12:09)
[2020-03-12] MEDS: MIDAZOLAM DRIP 50 mg/50mL 50 ML IV SCH (16:35)
[2020-03-12] MEDS: DOPamine 1600MCG/ML D5W 250 ML IV SCH (18:11)
[2020-03-12] MEDS ORDERED: NOREPINEPHRINE 8 MG/250ML KIT 250 ML IV ONE (19:19)
[2020-03-13] VITALS (76 sets, daily range): BP systolic 97–119; BP diastolic 44–64
[2020-03-13] MEDS: PROPOFOL 100 ML IV SCH (00:59)
[2020-03-13] MEDS ORDERED: DEXTROSE 10% 1,000 ML IV ONE ×2 (01:00→01:14)
[2020-03-13] MEDS: MIDAZOLAM DRIP 50 mg/50mL 50 ML IV SCH (03:20)
[2020-03-13] MEDS: fentaNYL Drip 2500mCg/250mlNS 250 ML IV SCH (03:21)
[2020-03-13 04:44] LABS: Basophils # (auto) 0.1 10 ^3/uL (0-0.2); Basophils % (auto) 0.6 % (0.0-2.0); Eosinophils # (auto) 0.1 10 ^3/uL (0-0.8); Eosinophils % (auto) 0.7 % (0.0-7.0); Hematocrit 34.1 % (36.0-46.0); Hemoglobin 10.6 g/dL (12.2-16.2); Lymphocytes # (auto) 0.2 10 ^3/uL (0.4-5.4); Lymphocytes % (auto) 1.5 % (10.0-50.0); Mean Corpuscular Hgb Conc. 31.1 g/dL (32.0-36.0); Monocytes # (auto) 0.5 10 ^3/uL (0-1.3); Monocytes % (auto) 3.8 % (0.0-12.0); Neutrophils # (auto) 12.8 10 ^3/uL (1.6-8.6); Neutrophils % (auto) 93.4 % (37.0-80.0); Nucleated Red Blood Cells % 0.3 %; Platelet Count (auto) 137 10^3/uL (140-450); Red Blood Cells 3.78 10^6/uL (4.0-5.20); Red Cell Distribution Width 16.8 % (11.8-14.3); White Blood Cell 13.7 10^3/uL (4.4-10.8)
[2020-03-13 05:08] LABS: Potassium 4.6 mmol/L (3.5-5.1)
[2020-03-13 05:17] LABS: BUN/Creatinine Ratio 44.4; Calcium 6.2 mg/dL (8.5-10.1)
[2020-03-13] MEDS: ACCU-CHEK COMFORT CURVE STRIP VI SCH ×4 (06:00→18:28)
[2020-03-13] MEDS: InsuLIN REG 1unit/0.01ml Soln (100units/ml) SC SCH ×4 (06:00→18:00)
[2020-03-13] MEDS: METOPROLOL TARTRATE 25 MG TAB GT SCH ×2 (09:43→19:57)
[2020-03-13] MEDS: CEFEPIME 1 GM in SODIUM CHL 0.9% 50 ML IV SCH (09:44)
[2020-03-13] MEDS: INSULIN LANTUS (GLARGINE) 1 /0.01ml (100units/ml) SC SCH (09:45)
[2020-03-13] MEDS: FAMOTIDINE (10MG/ML) 2ML VL IV SCH (09:45)
[2020-03-13] MEDS: SODIUM CHLOR 0.9% PF (SALINE LOCK) 10ML VIAL/SYR IV SCH ×2 (10:00→22:00)
[2020-03-13] MEDS: DOPamine 1600MCG/ML D5W 250 ML IV SCH (10:45)
[2020-03-13] MEDS: BUMETANIDE INJECTION 12.5 MG in GIVE UN-DILUTED 0 ML IV SCH (11:15)
[2020-03-13] MEDS: DEXTROSE (50%) 50ML SYRG IV SCH (13:12)
[2020-03-13] MEDS: NOREPINEPHRINE 8 MG/250ML KIT 250 ML IV SCH (20:45)
[2020-03-14] VITALS (47 sets, daily range): BP systolic 95–134; BP diastolic 35–56
[2020-03-14] MEDS ORDERED: PHENYLEPHRINE IV 250 ML IV ONE (03:53)
[2020-03-14] MEDS: PROPOFOL 100 ML IV SCH (05:15)
[2020-03-14] MEDS: InsuLIN REG 1unit/0.01ml Soln (100units/ml) SC SCH ×4 (06:00→13:18)
[2020-03-14 06:16] LABS: BUN/Creatinine Ratio 29.5
[2020-03-14 06:25] LABS: Potassium 5.8 mmol/L (3.5-5.1)
[2020-03-14] MEDS: ACCU-CHEK COMFORT CURVE STRIP VI SCH ×4 (06:25→13:18)
[2020-03-14] MEDS: DEXTROSE (50%) 50ML SYRG IV SCH ×4 (06:27→13:01)
[2020-03-14 06:41] LABS: Hemoglobin 9.2 g/dL (12.2-16.2); Mean Corpuscular Hemoglobin 28.8 pg (28.0-32.0); Mean Corpuscular Hgb Conc. 31.9 g/dL (32.0-36.0); Mean Corpuscular Volume 90.3 fL (80.0-100.0); Platelet Count (auto) 129 10^3/uL (140-450); Red Blood Cells 3.21 10^6/uL (4.0-5.20); White Blood Cell 8.6 10^3/uL (4.4-10.8)
[2020-03-14 06:53] LABS: Basophils % (manual) 0 (0.0-2.0); Blast Cells 0; Eosinophils % (manual) 0 (0-7); Promyelocytes % 0; Reactive Lymphocytes 0
[2020-03-14] MEDS: fentaNYL Drip 2500mCg/250mlNS 250 ML IV SCH (07:00)
[2020-03-14 07:58] LABS: Band Neutrophils % (manual) 20; Lymphocytes % (manual) 5 (10.0-50.0); Metamyelocytes % 4; Monocytes % (manual) 9 (0-12); Myelocytes % 2
[2020-03-14] MEDS ORDERED: SODIUM BICARBONATE 8.4 % INJ 50ML VIAL IV ONE ×3 (09:21→10:30)
[2020-03-14] MEDS: METOPROLOL TARTRATE 25 MG TAB GT SCH (09:48)
[2020-03-14] MEDS: CEFEPIME 1 GM in SODIUM CHL 0.9% 50 ML IV SCH (09:49)
[2020-03-14] MEDS: SODIUM CHLOR 0.9% PF (SALINE LOCK) 10ML VIAL/SYR IV SCH (09:49)
[2020-03-14] MEDS: INSULIN LANTUS (GLARGINE) 1 /0.01ml (100units/ml) SC SCH (09:50)
[2020-03-14] MEDS ORDERED: SODIUM BICARBONATE 50ML VIAL 150 ML in D5W 5% 1,000 ML IV SCH (10:45)
[2020-03-14] MEDS ORDERED: ALBUTEROL SULF 2.5 MG/0.5ML(0.5%) NEB SOLN NEB ONE (10:45)
[2020-03-14] MEDS: DOPamine 1600MCG/ML D5W 250 ML IV SCH (10:55)
[2020-03-14] MEDS: BUMETANIDE INJECTION 12.5 MG in GIVE UN-DILUTED 0 ML IV SCH (11:29)
== END 2020-03-14 17:30 | DRG 720 ==
LOC: EDBD 13:03 → ER 13:03 → TELE-WESTW 13:04 → ICU WEST 02-26 08:29
PROVIDERS: ADMIT Internal Medicine; ATTEND Internal Medicine Nephrology
PROC: XW033E5 Introduction of Remdesivir Anti-infective into Peripheral Vein, Percutaneous Approach, New Technology Group 5 (ICD-10-PCS; 2020-02-16)
PROC: XW13325 Transfusion of Convalescent Plasma (Nonautologous) into Peripheral Vein, Percutaneous Approach, New Technology Group 5 (ICD-10-PCS; 2020-02-17)
PROC: 02HV33Z Insertion of Infusion Device into Superior Vena Cava, Percutaneous Approach (ICD-10-PCS; 2020-02-24)
PROC: B548ZZA Ultrasonography of Superior Vena Cava, Guidance (ICD-10-PCS; 2020-02-24)
PROC: 5A1955Z Respiratory Ventilation, Greater than 96 Consecutive Hours (ICD-10-PCS; principal; 2020-02-26)
PROC: 0BH17EZ Insertion of Endotracheal Airway into Trachea, Via Natural or Artificial Opening (ICD-10-PCS; 2020-02-26)
PROC: 05HF33Z Insertion of Infusion Device into Left Cephalic Vein, Percutaneous Approach (ICD-10-PCS; 2020-02-26)
PROC: B54NZZA Ultrasonography of Left Upper Extremity Veins, Guidance (ICD-10-PCS; 2020-02-26)
PROC: 30233N1 Transfusion of Nonautologous Red Blood Cells into Peripheral Vein, Percutaneous Approach (ICD-10-PCS; 2020-03-05)
DX: A41.89 Other specified sepsis (principal); U07.1 COVID-19; J12.82 Pneumonia due to coronavirus disease 2019; G92 Toxic encephalopathy; E86.0 Dehydration; E87.5 Hyperkalemia; D63.8 Anemia in other chronic diseases classified elsewhere; I16.1 Hypertensive emergency; J96.01 Acute respiratory failure with hypoxia; E11.65 Type 2 diabetes mellitus with hyperglycemia; N17.0 Acute kidney failure with tubular necrosis; E43 Unspecified severe protein-calorie malnutrition; D62 Acute posthemorrhagic anemia; K92.2 Gastrointestinal hemorrhage, unspecified; Z68.34 Body mass index [BMI] 34.0-34.9, adult; E11.22 Type 2 diabetes mellitus with diabetic chronic kidney disease; T38.0X5A Adverse effect of glucocorticoids and synthetic analogues, initial encounter; I48.91 Unspecified atrial fibrillation; E87.2 Acidosis; Z66 Do not resuscitate; D69.6 Thrombocytopenia, unspecified; D68.69 Other thrombophilia; I10 Essential (primary) hypertension; N18.9 Chronic kidney disease, unspecified
CPT/HCPCS: 36415; 36569; 36600; 70450; 71045; 76775; 80048; 80053; 80076; 80162; 81001; 82040; 82150; 82550; 82570; 82728; 82784; 82805; 82962; 83036; 83615; 83690; 83735; 83880; 84100; 84156; 84300; 84478; 84484; 85007; 85014; 85018; 85025; 85027; 85379; 85610; 85730; 86141; 86334; 86850; 86900; 86901; 86920; 87040; 87070; 87081; 87086; 87205; 87426; 93970; 94002; 94003; 94640; 96365; 96372; 99291; G0378; J0330; J0696; J1100; J1815; J2250; J2704; J3490